=== PATIENT | female | born 1995 | race African-American/Black ===

== ENCOUNTER 2021-08-16 12:33 | Inpatient (IN) | payer MEDICAID, OTHER ==
[~2021-08-16] VITALS: Ht 172.7 cm; Wt 64.0 kg
[~2021-08-16 12:33] MED LIST: FERR325T23 PO; IBUP-2030 PO; LOV40 SQ; PNV1TABL76 PO
[2021-08-16] MEDS ORDERED: ACETAMINOPHEN 325MG TABLET PO STA (13:17)
[2021-08-16] MEDS ORDERED: SODIUM CHLORIDE 0.9% 1,000 ML IV ONE (14:45)
[2021-08-16 16:00] LABS: BASOPHILS % 2.1 % (0.0-2.0); EOSINOPHILS % 1.9 % (0.0-5.0); HEMATOCRIT. 29.4 % (36.0-48.0); HEMOGLOBIN. 9.3 g/dL (12.0-16.0); LYMPHOCYTES % 32.7 % (20.0-50.0); MEAN CORPUSCULAR HEMOGLOBIN 23.1 pg (28.0-32.0); MEAN CORPUSCULAR VOLUME 73.1 fL (81.0-99.0); MEAN PLATELET VOLUME 7.4 fl (7.4-10.4); MONOCYTES % 6.8 % (2.0-8.0); NEUTROPHILS % 56.5 % (40.0-76.0); PLATELET 387 x1000/uL (130-400); RED BLOOD CELL COUNT 4.02 mill/uL (4.2-5.4); RED CELL DISTRIBUTION WIDTH 17.9 % (11.6-14.6)
[2021-08-16] MEDS ORDERED: ASPIRIN 81MG TABLET PO ONE (16:00)
[2021-08-16 16:04] LABS: CHLORIDE 108 mEq/L (98-107)
[2021-08-16 16:07] LABS: ETHANOL BLOOD < 10 mg/dL
[2021-08-16 16:11] LABS: HCG SCREEN NEGATIVE
[2021-08-16 16:24] LABS: MONOTEST NEGATIVE (NEGATIVE)
[2021-08-17] VITALS: BP 113/73
[2021-08-17] MEDS ORDERED: ONDA4TAB5 MT (00:19)
[2021-08-17] MEDS ORDERED: MELO-104 PO (00:19)
[2021-08-17] MEDS ORDERED: CHOL400D7 PO (00:19)
[2021-08-17] MEDS ORDERED: BISA-81 MT (00:19)
[2021-08-17] MEDS ORDERED: BUTA1CAP45 MT (00:19)
[2021-08-17] MEDS ORDERED: PNV1TABL50 MT (00:19)
[2021-08-17] MEDS ORDERED: HYDR500C18 MT (00:19)
[2021-08-17] MEDS ORDERED: PYRI-9 MT (00:19)
[2021-08-17] MEDS ORDERED: PROT40 MT (00:19)
[2021-08-17] MEDS ORDERED: OXYC-100 MT (00:19)
[2021-08-17] MEDS ORDERED: GABA-529 MT (00:19)
[2021-08-17] MEDS ORDERED: LORA10TA64 MT (00:19)
[2021-08-17] MEDS ORDERED: ESCI5TAB PO (00:19)
[2021-08-17] MEDS ORDERED: FLUT1DIS3 INH (00:19)
[2021-08-17] MEDS ORDERED: FERR325T6 MT (00:24)
[2021-08-17] MEDS ORDERED: BISACODYL 5MG TABLET PO PRN (01:00)
[2021-08-17] MEDS ORDERED: IPRATROPIUM/ALBUTEROL 0.5-3(2.5)MG/3ML NEB HHN PRN (01:00)
[2021-08-17] MEDS ORDERED: NON FORMULARY PATIENT HOME MED XX SCH ×7 (01:00)
[2021-08-17] MEDS ORDERED: MELOXICAM 7.5MG TABLET PO PRN (01:00)
[2021-08-17 01:46] VITALS: BP 113/73
[2021-08-17] MEDS: ONDANSETRON HCL 4MG TABLET PO SCH ×4 (02:10→18:36)
[2021-08-17] MEDS: OXYCODONE HCL/ACETAMINOPHEN 5/325MG TABLET PO PRN ×3 (02:10→18:45)
[2021-08-17 04:00] VITALS: BP 112/61
[2021-08-17] MEDS: ALBUTEROL (0.083%) 2.5MG/3ML NEB HHN SCH ×4 (05:10→21:59)
[2021-08-17] MEDS: PANTOPRAZOLE 40MG DR TABLET PO SCH (06:59)
[2021-08-17] MEDS: BUDESONIDE 0.5MG/2ML NEB HHN SCH (08:49)
[2021-08-17 09:00] VITALS: BP 101/48
[2021-08-17] MEDS ORDERED: ENOXAPARIN 40MG/0.4ML SYR SUBCUT SCH (09:00)
[2021-08-17] MEDS: PRENATAL VIT/FE FUMARATE/FA TABLET PO SCH (09:36)
[2021-08-17] MEDS: CHOLECALCIFEROL (D3) 1000 UNIT TABLET PO SCH (09:36)
[2021-08-17] MEDS: LORATADINE 10MG TABLET PO SCH (09:37)
[2021-08-17] MEDS: FERROUS SULFATE 325MG TABLET PO SCH (09:38)
[2021-08-17] MEDS: BUTALBITAL/ACETAMINOPHEN/CAFFEINE 50/325/40MG TABLET PO SCH (09:38)
[2021-08-17] MEDS: PYRIDOXINE HCL 50MG TABLET PO SCH (09:38)
[2021-08-17] MEDS: CITALOPRAM HYDROBROMIDE 10MG TABLET PO SCH (09:39)
[2021-08-17] MEDS: GABAPENTIN 100MG CAPSULE PO SCH ×3 (09:39→18:37)
[2021-08-17] MEDS: ENOXAPARIN 40MG/0.4ML SYR SUBCUT SCH (09:40)
[2021-08-17] MEDS: HYDROXYUREA 500MG CAPSULE PO SCH (09:49)
[2021-08-17] MEDS ORDERED: NALOXONE HCL 0.4MG/ML VIAL IV PRN (13:00)
[2021-08-17] MEDS: KETOROLAC 30MG/ML VIAL IV PRN ×2 (14:31→21:21)
[2021-08-17 16:00] VITALS: BP 130/78
[2021-08-17 20:00] VITALS: BP 128/81
[2021-08-18] VITALS: BP 119/69
[2021-08-18] MEDS: ONDANSETRON HCL 4MG TABLET PO SCH ×3 (00:57→12:13)
[2021-08-18] MEDS: ALBUTEROL (0.083%) 2.5MG/3ML NEB HHN SCH ×2 (02:09→08:46)
[2021-08-18 04:00] VITALS: BP 129/84
[2021-08-18] MEDS: KETOROLAC 30MG/ML VIAL IV PRN ×2 (04:50→12:04)
[2021-08-18] MEDS: PANTOPRAZOLE 40MG DR TABLET PO SCH (05:00)
[2021-08-18 06:21] LABS: EOSINOPHILS % 3.9 % (0.0-5.0); HEMATOCRIT. 26.1 % (36.0-48.0); HEMOGLOBIN. 8.3 g/dL (12.0-16.0); LYMPHOCYTES % 50.9 % (20.0-50.0); MEAN CORPUSCULAR HEMOGLOBIN 23.1 pg (28.0-32.0); MEAN PLATELET VOLUME 7.8 fl (7.4-10.4); MONOCYTES % 6.6 % (2.0-8.0); NEUTROPHILS % 37.6 % (40.0-76.0); PLATELET 340 x1000/uL (130-400); RED BLOOD CELL COUNT 3.58 mill/uL (4.2-5.4)
[2021-08-18 06:44] LABS: CHLORIDE 108 mEq/L (98-107)
[2021-08-18 08:00] VITALS: BP 99/54
[2021-08-18] MEDS: BUDESONIDE 0.5MG/2ML NEB HHN SCH (08:46)
[2021-08-18] MEDS: BUTALBITAL/ACETAMINOPHEN/CAFFEINE 50/325/40MG TABLET PO SCH (09:00)
[2021-08-18] MEDS: ENOXAPARIN 40MG/0.4ML SYR SUBCUT SCH ×2 (09:00→09:04)
[2021-08-18] MEDS ORDERED: ASPIRIN 81MG TABLET PO SCH (09:00)
[2021-08-18] MEDS: CITALOPRAM HYDROBROMIDE 10MG TABLET PO SCH (09:04)
[2021-08-18] MEDS: FERROUS SULFATE 325MG TABLET PO SCH (09:04)
[2021-08-18] MEDS: PRENATAL VIT/FE FUMARATE/FA TABLET PO SCH (09:04)
[2021-08-18] MEDS: LORATADINE 10MG TABLET PO SCH (09:04)
[2021-08-18] MEDS: CHOLECALCIFEROL (D3) 1000 UNIT TABLET PO SCH (09:05)
[2021-08-18] MEDS: GABAPENTIN 100MG CAPSULE PO SCH ×2 (09:05→12:13)
[2021-08-18] MEDS: HYDROXYUREA 500MG CAPSULE PO SCH (09:05)
[2021-08-18] MEDS: PYRIDOXINE HCL 50MG TABLET PO SCH (09:06)
[2021-08-18] MEDS: OXYCODONE HCL/ACETAMINOPHEN 5/325MG TABLET PO PRN (09:21)
[2021-08-18 11:56] VITALS: BP 104/62
[2021-08-18 12:38] VITALS: BP 104/62
[2021-08-21 08:08] LABS: HGB A2 1.8 % (1.8-3.2)
== END 2021-08-18 15:55 | disposition home or self-care (01) | DRG 663 ==
LOC: ER 12:33 → 6WST 17:27 → ENRESERV 21:38
PROVIDERS: ADMIT Internal Medicine; ATTEND Internal Medicine
DX: D57.1 Sickle-cell disease without crisis (principal); E87.8 Other disorders of electrolyte and fluid balance, not elsewhere classified; I69.354 Hemiplegia and hemiparesis following cerebral infarction affecting left non-dominant side; J45.909 Unspecified asthma, uncomplicated; Z20.822 Contact with and (suspected) exposure to COVID-19; J02.9 Acute pharyngitis, unspecified; R07.9 Chest pain, unspecified; I69.398 Other sequelae of cerebral infarction
CPT/HCPCS: 36415; 71045; 80048; 80053; 80320; 83021; 83880; 84484; 84703; 85025; 85044; 85660; 86308; 87426; 93005; 94640; 99285; J1650; J1885; J7030; J7626; Q0162; G0480

== ENCOUNTER 2021-08-21 14:08 | Emergency (ER) | payer MEDICAID ==
[~2021-08-21] VITALS: Ht 170.2 cm; Wt 66.0 kg
[~2021-08-21 14:08] MED LIST changes: +BISA-81 MT; +BUTA1CAP45 MT; +CHOL400D7 PO; +ESCI5TAB PO; +FERR325T6 MT; +FLUT1DIS3 INH; +GABA-529 MT; +HYDR500C18 MT; +LORA10TA64 MT; +MELO-104 PO; +ONDA4TAB5 MT; +OXYC-100 MT; +PNV1TABL50 MT; +PROT40 MT; +PYRI-9 MT
[2021-08-21] MEDS ORDERED: FENTANYL CITRATE/PF 50MCG/ML 2ML VIAL IV ONE ×2 (16:45→18:00)
[2021-08-21] MEDS ORDERED: KETOROLAC 30MG/ML VIAL IV ONE (16:45)
[2021-08-21 16:57] LABS: HEMATOCRIT. 25.7 % (36.0-48.0); HEMOGLOBIN. 7.8 g/dL (12.0-16.0); LYMPHOCYTES % 50.3 % (20.0-50.0); MEAN CORPUSCULAR HEMOGLOBIN 23.4 pg (28.0-32.0); MEAN CORPUSCULAR VOLUME 76.8 fL (81.0-99.0); MEAN PLATELET VOLUME 7.5 fl (7.4-10.4); MONOCYTES % 6.6 % (2.0-8.0); NEUTROPHILS % 38.1 % (40.0-76.0); PLATELET 339 x1000/uL (130-400); RED BLOOD CELL COUNT 3.35 mill/uL (4.2-5.4); RED CELL DISTRIBUTION WIDTH 17.9 % (11.6-14.6)
[2021-08-21] MEDS ORDERED: OXYC-100 MT (19:13)
[2021-08-21 19:57] VITALS: BP 105/72
== END 2021-08-21 20:32 | disposition home or self-care (01) ==
LOC: ER 14:08
DX: D57.00 Hb-SS disease with crisis, unspecified (principal); I69.954 Hemiplegia and hemiparesis following unspecified cerebrovascular disease affecting left non-dominant side; M32.9 Systemic lupus erythematosus, unspecified
CPT/HCPCS: 36415; 85025; 96374; 96375; 96376; 99284; J1885; J3010

== ENCOUNTER 2021-08-23 00:16 | Emergency (ER) | payer MEDICAID ==
[~2021-08-23] VITALS: Ht 157.5 cm; Wt 61.0 kg
[~2021-08-23 00:16] MED LIST changes: -FERR325T23 PO; -IBUP-2030 PO; -PNV1TABL76 PO
[2021-08-23] MEDS ORDERED: SODIUM CHLORIDE 0.9% 1,000 ML IV ONE (01:45)
[2021-08-23] MEDS ORDERED: MORPHINE SULFATE 4 MG/ML CPJ (NOT FOR IM USE) IV ONE (01:45)
[2021-08-23] MEDS ORDERED: ASPIRIN 81MG TABLET PO ONE (01:45)
[2021-08-23 02:00] VITALS: BP 111/67
[2021-08-23 02:53] LABS: BASOPHILS % 0.7 % (0.0-2.0); EOSINOPHILS % 4.3 % (0.0-5.0); HEMATOCRIT. 29.7 % (36.0-48.0); HEMOGLOBIN. 9.5 g/dL (12.0-16.0); LYMPHOCYTES % 44.1 % (20.0-50.0); MEAN CORPUSCULAR HEMOGLOBIN 23.1 pg (28.0-32.0); MEAN CORPUSCULAR VOLUME 72.1 fL (81.0-99.0); MEAN PLATELET VOLUME 7.5 fl (7.4-10.4); MONOCYTES % 4.5 % (2.0-8.0); NEUTROPHILS % 46.4 % (40.0-76.0); PLATELET 395 x1000/uL (130-400); RED BLOOD CELL COUNT 4.12 mill/uL (4.2-5.4); RED CELL DISTRIBUTION WIDTH 18.3 % (11.6-14.6)
[2021-08-23 03:11] LABS: CHLORIDE 106 mEq/L (98-107)
[2021-08-23 03:15] LABS: ETHANOL BLOOD < 10 mg/dL
== END 2021-08-23 05:21 | disposition home or self-care (01) ==
LOC: ER 00:16
DX: G89.29 Other chronic pain (principal); D57.1 Sickle-cell disease without crisis
CPT/HCPCS: 36415; 71045; 80053; 80320; 85025; 85044; 96361; 96374; 99284; J2270; J7030; G0480

== ENCOUNTER 2021-09-04 08:27 | Emergency (ER) | payer MEDICAID ==
[~2021-09-04] VITALS: Ht 170.2 cm; Wt 59.0 kg
[2021-09-04] MEDS ORDERED: ONDANSETRON HCL 4MG/2ML INJ IV STA (08:45)
[2021-09-04] MEDS ORDERED: KETOROLAC 30MG/ML VIAL IV STA (08:45)
[2021-09-04 09:11] LABS: EOSINOPHILS % 2.3 % (0.0-5.0); HEMATOCRIT. 29.2 % (36.0-48.0); HEMOGLOBIN. 9.3 g/dL (12.0-16.0); LYMPHOCYTES % 49.1 % (20.0-50.0); MEAN CORPUSCULAR HEMOGLOBIN 24.9 pg (28.0-32.0); MEAN PLATELET VOLUME 7.1 fl (7.4-10.4); MONOCYTES % 6.6 % (2.0-8.0); PLATELET 433 x1000/uL (130-400); RED BLOOD CELL COUNT 3.74 mill/uL (4.2-5.4); RED CELL DISTRIBUTION WIDTH 27.5 % (11.6-14.6)
[2021-09-04 09:19] LABS: CHLORIDE 109 mEq/L (98-107)
[2021-09-04 09:30] LABS: HCG SCREEN NEGATIVE
[2021-09-04 09:48] LABS: PLATELET ESTIMATE SLIGHTLY INCREASED
[2021-09-04] MEDS ORDERED: DICYCLOMINE 10 MG/5 ML ORAL SYR PO STA (10:26)
[2021-09-04] MEDS ORDERED: VISCOUS LIDOCAINE 2% 15 ML UDC PO STA (10:26)
[2021-09-04] MEDS ORDERED: MAGNESIUM/ALUMINUM HYDROXIDE/SIMETHICONE 30ML UDC PO STA (10:26)
[2021-09-04] MEDS ORDERED: FAMOTIDINE 20MG/2ML VIAL IV STA (10:26)
[2021-09-04] MEDS ORDERED: IBUP-2030 PO (12:06)
[2021-09-04 12:50] VITALS: BP 110/63
== END 2021-09-04 13:16 | disposition home or self-care (01) ==
LOC: ER 08:37
DX: R10.2 Pelvic and perineal pain (principal); Z86.73 Personal history of transient ischemic attack (TIA), and cerebral infarction without residual deficits; M32.9 Systemic lupus erythematosus, unspecified; D57.1 Sickle-cell disease without crisis; J45.909 Unspecified asthma, uncomplicated; Z79.899 Other long term (current) drug therapy
CPT/HCPCS: 36415; 74018; 76830; 76856; 80053; 83690; 84703; 85025; 96374; 96375; 99285; J1885; J2405; J3490; Z7610

== ENCOUNTER 2021-12-01 19:11 | Inpatient (IN) | payer MEDICAID ==
[~2021-12-01] VITALS: Ht 172.7 cm; Wt 70.8 kg
[~2021-12-01 19:11] MED LIST changes: +ENOX40SY27 SQ; +IBUP-2030 PO; -LOV40 SQ
[2021-12-01 20:51] LABS: BASOPHILS % 0.8 % (0.0-2.0); EOSINOPHILS % 2.1 % (0.0-5.0); HEMATOCRIT. 29.2 % (36.0-48.0); LYMPHOCYTES % 43.2 % (20.0-50.0); MEAN CORPUSCULAR HEMOGLOBIN 22.2 pg (28.0-32.0); MONOCYTES % 5.9 % (2.0-8.0); PLATELET 362 x1000/uL (130-400); RED BLOOD CELL COUNT 4.06 mill/uL (4.2-5.4); RED CELL DISTRIBUTION WIDTH 21.6 % (11.6-14.6)
[2021-12-01 21:00] LABS: INR 1.1; PROTHROMBIN TIME 11.9 sec (9.6-11.0)
[2021-12-01] MEDS ORDERED: SODIUM CHLORIDE 0.9% 1,000 ML IV ONE (21:15)
[2021-12-01] MEDS ORDERED: HYDROMORPHONE HCL/PF 2MG/ML CPJ IV ONE ×2 (21:30→23:15)
[2021-12-01] MEDS ORDERED: ONDANSETRON HCL 4MG/2ML INJ IV ONE (21:30)
[2021-12-01 21:32] LABS: CHLORIDE 105 mEq/L (98-107)
[2021-12-01 22:03] LABS: CLARITY URINE CLEAR (CLEAR); COLOR URINE YELLOW (YELLOW); KETONES URINE NEGATIVE (NEGATIVE); LEUKOCYTE ESTERASE URINE NEGATIVE (NEGATIVE); NITRITE URINE NEGATIVE (NEGATIVE); OCCULT BLOOD URINE NEGATIVE (NEGATIVE); PH URINE 7.5 (4.5-8.0); PROTEIN URINE NEGATIVE (NEGATIVE); SPECIFIC GRAVITY URINE 1.012 (1.005-1.030); UROBILINOGEN URINE 0.2 E.U./dL (0.2-1.0)
[2021-12-02] MEDS ORDERED: NALOXONE HCL 0.4MG/ML VIAL IV PRN (02:00)
[2021-12-02] MEDS: MORPHINE SULFATE 2 MG/ML CPJ (NOT FOR IM USE) IV PRN ×2 (04:42→08:57)
[2021-12-02] MEDS: ONDANSETRON HCL 4MG/2ML INJ IV PRN ×2 (04:42→11:32)
[2021-12-02 09:00] VITALS: BP 104/75
[2021-12-02 12:00] VITALS: BP 99/66
[2021-12-02] MEDS: SODIUM CHLORIDE 0.9% 1,000 ML IV SCH ×2 (12:35→23:50)
[2021-12-02] MEDS: KETOROLAC 30MG/ML VIAL IV PRN ×2 (12:36→19:00)
[2021-12-02] MEDS: FOLIC ACID 1MG TABLET PO SCH (15:39)
[2021-12-02] MEDS: GABAPENTIN 100MG CAPSULE PO SCH ×2 (15:39→22:15)
[2021-12-02 16:00] VITALS: BP 111/69
[2021-12-02] MEDS: ENOXAPARIN 40MG/0.4ML SYR SUBCUT SCH (19:02)
[2021-12-02 20:00] VITALS: BP 112/68
[2021-12-02] MEDS: HYDROCODONE/ACETAMINOPHEN 10/325MG TABLET PO PRN (22:15)
[2021-12-03] VITALS: BP 94/46
[2021-12-03] MEDS: KETOROLAC 30MG/ML VIAL IV PRN ×3 (01:03→16:46)
[2021-12-03 04:00] VITALS: BP 104/59
[2021-12-03] MEDS ORDERED: HYDROMORPHONE HCL/PF 2MG/ML CPJ IV SCH (07:00)
[2021-12-03] MEDS: GABAPENTIN 100MG CAPSULE PO SCH ×3 (07:21→22:16)
[2021-12-03 08:00] VITALS: BP 103/59
[2021-12-03] MEDS: PANTOPRAZOLE 40MG DR TABLET PO SCH (08:12)
[2021-12-03] MEDS: ENOXAPARIN 40MG/0.4ML SYR SUBCUT SCH (08:12)
[2021-12-03] MEDS: FOLIC ACID 1MG TABLET PO SCH (08:12)
[2021-12-03] MEDS: ASPIRIN 81MG TABLET PO SCH (08:12)
[2021-12-03 12:00] VITALS: BP 103/60
[2021-12-03] MEDS: SODIUM CHLORIDE 0.9% 1,000 ML IV SCH (13:41)
[2021-12-03 15:51] VITALS: BP 105/65
[2021-12-03 20:00] VITALS: BP 117/71
[2021-12-03] MEDS: HYDROCODONE/ACETAMINOPHEN 10/325MG TABLET PO PRN (20:12)
[2021-12-04] VITALS: BP 114/64
[2021-12-04] MEDS: KETOROLAC 30MG/ML VIAL IV PRN ×2 (01:58→09:56)
[2021-12-04] MEDS: SODIUM CHLORIDE 0.9% 1,000 ML IV SCH (02:40)
[2021-12-04 04:00] VITALS: BP 101/57
[2021-12-04] MEDS: GABAPENTIN 100MG CAPSULE PO SCH ×2 (05:24→13:03)
[2021-12-04] MEDS: PANTOPRAZOLE 40MG DR TABLET PO SCH (06:40)
[2021-12-04 08:00] VITALS: BP 100/59
[2021-12-04] MEDS: FOLIC ACID 1MG TABLET PO SCH (09:56)
[2021-12-04] MEDS: ASPIRIN 81MG TABLET PO SCH (09:56)
[2021-12-04] MEDS: ENOXAPARIN 40MG/0.4ML SYR SUBCUT SCH (09:57)
[2021-12-04 11:29] VITALS: BP 125/75
[2021-12-05] MEDS ORDERED: FAMOTIDINE 20MG TABLET PO SCH (09:00)
== END 2021-12-04 16:16 | disposition home or self-care (01) | DRG 203 ==
LOC: ER 19:11 → 7WST 12-02 04:47 → MICUSO 12-02 05:14 → 7WST 12-02 09:32
PROVIDERS: ADMIT Internal Medicine; ATTEND Internal Medicine
DX: M94.0 Chondrocostal junction syndrome [Tietze] (principal); M32.9 Systemic lupus erythematosus, unspecified; D57.1 Sickle-cell disease without crisis; J45.909 Unspecified asthma, uncomplicated; I69.354 Hemiplegia and hemiparesis following cerebral infarction affecting left non-dominant side; R53.1 Weakness; Z20.822 Contact with and (suspected) exposure to COVID-19; Z79.01 Long term (current) use of anticoagulants; Z79.899 Other long term (current) drug therapy
CPT/HCPCS: 36415; 70551; 71045; 80053; 81003; 84484; 85025; 85044; 87426; 93005; 93970; 97161; 99285; J1170; J1650; J1885; J2270; J2405; J7030

== ENCOUNTER 2022-01-01 09:34 | Emergency (ER) | payer MEDICAID ==
[~2022-01-01] VITALS: Ht 172.7 cm; Wt 55.0 kg
[2022-01-01] MEDS ORDERED: MORPHINE SULFATE 4 MG/ML CPJ (NOT FOR IM USE) IV STA (09:56)
[2022-01-01] MEDS ORDERED: SODIUM CHLORIDE 0.9% 1,000 ML IV ONE (10:00)
[2022-01-01 10:12] LABS: BASOPHILS % 1.8 % (0.0-2.0); EOSINOPHILS % 3.7 % (0.0-5.0); HEMATOCRIT. 31.8 % (36.0-48.0); LYMPHOCYTES % 44.3 % (20.0-50.0); MEAN CORPUSCULAR VOLUME 70.1 fL (81.0-99.0); MEAN PLATELET VOLUME 7.1 fl (7.4-10.4); MONOCYTES % 9.2 % (2.0-8.0); PLATELET 420 x1000/uL (130-400); RED BLOOD CELL COUNT 4.53 mill/uL (4.2-5.4); RED CELL DISTRIBUTION WIDTH 20.3 % (11.6-14.6)
[2022-01-01 10:19] LABS: CHLORIDE 107 mEq/L (98-107); HCG SCREEN NEGATIVE
[2022-01-01 10:23] LABS: INR 1.1; PROTHROMBIN TIME 11.4 sec (9.6-11.0)
[2022-01-01 12:30] VITALS: BP 116/84
== END 2022-01-01 13:34 | disposition home or self-care (01) ==
LOC: ER 09:34
DX: R07.89 Other chest pain (principal); R06.02 Shortness of breath; M79.18 Myalgia, other site; D50.9 Iron deficiency anemia, unspecified; M32.9 Systemic lupus erythematosus, unspecified; R03.0 Elevated blood-pressure reading, without diagnosis of hypertension; I69.954 Hemiplegia and hemiparesis following unspecified cerebrovascular disease affecting left non-dominant side; Z79.899 Other long term (current) drug therapy
CPT/HCPCS: 36415; 71045; 80053; 84484; 84703; 85025; 85044; 85610; 85660; 93005; 96361; 96374; 99285; J2270; J7030

== ENCOUNTER 2022-05-12 01:28 | Emergency (ER) | payer MEDICAID ==
[~2022-05-12] VITALS: Ht 180.3 cm; Wt 82.0 kg
[2022-05-12] MEDS ORDERED: HYDROCODONE/ACETAMINOPHEN 5/325MG TABLET PO ONE (02:30)
[2022-05-12 02:39] LABS: HEMATOCRIT. 29.9 % (36.0-48.0); HEMOGLOBIN. 9.5 g/dL (12.0-16.0); LYMPHOCYTES % 60.2 % (20.0-50.0); MEAN CORPUSCULAR HEMOGLOBIN 22.3 pg (28.0-32.0); MEAN CORPUSCULAR VOLUME 70.5 fL (81.0-99.0); MEAN PLATELET VOLUME 7.9 fl (7.4-10.4); MONOCYTES % 6.7 % (2.0-8.0); NEUTROPHILS % 28.1 % (40.0-76.0); PLATELET 429 x1000/uL (130-400); RED BLOOD CELL COUNT 4.23 mill/uL (4.2-5.4); RED CELL DISTRIBUTION WIDTH 19.5 % (11.6-14.6)
[2022-05-12 02:41] LABS: CHLORIDE 109 mEq/L (98-107)
[2022-05-12 03:53] LABS: *AMPHETAMINES SCREEN URINE NEGATIVE (NEGATIVE); *BARBITURATES SCREEN URINE NEGATIVE (NEGATIVE); *BENZODIAZEPINES SCREEN URINE NEGATIVE (NEGATIVE); *COCAINE SCREEN URINE NEGATIVE (NEGATIVE); CANNABINOID URINE SCREEN NEGATIVE (NEGATIVE); METHADONE URINE SCREEN NEGATIVE (NEGATIVE); OPIATES URINE SCREEN NEGATIVE (NEGATIVE); PHENCYCLIDINE URINE SCREEN NEGATIVE (NEGATIVE)
[2022-05-12 05:00] VITALS: BP 109/58
== END 2022-05-12 05:12 | disposition home or self-care (01) ==
LOC: ER 01:41
DX: M79.18 Myalgia, other site (principal); R53.1 Weakness; Z20.822 Contact with and (suspected) exposure to COVID-19; R11.0 Nausea; I69.954 Hemiplegia and hemiparesis following unspecified cerebrovascular disease affecting left non-dominant side; M32.9 Systemic lupus erythematosus, unspecified; D57.1 Sickle-cell disease without crisis; Z79.899 Other long term (current) drug therapy; F12.90 Cannabis use, unspecified, uncomplicated
CPT/HCPCS: 36415; 71045; 80053; 80305; 81025; 85025; 85044; 87426; 87804; 99284; C9803; Z7610

== ENCOUNTER 2022-11-23 09:50 | Emergency (ER) | payer MEDICAID ==
[~2022-11-23] VITALS: Ht 157.5 cm; Wt 52.0 kg
[2022-11-23 09:52] VITALS: O2SAT 100
[2022-11-23] MEDS ORDERED: ONDANSETRON HCL 4MG/2ML INJ IV STA (10:27)
[2022-11-23] MEDS ORDERED: KETOROLAC 30MG/ML VIAL IV STA (10:27)
[2022-11-23] MEDS ORDERED: AMOXICILLIN/POTASSIUM CLAVULANATE 875/125MG TAB PO ONE (10:30)
[2022-11-23] MEDS ORDERED: SODIUM CHLORIDE 0.9% 1,000 ML IV ONE (10:30)
[2022-11-23 11:28] LABS: BASOPHILS % 1.3 % (0.0-2.0); EOSINOPHILS % 4.8 % (0.0-5.0); HEMATOCRIT. 30.5 % (36.0-48.0); MEAN CORPUSCULAR VOLUME 79.3 fL (81.0-99.0); MEAN PLATELET VOLUME 7.1 fl (7.4-10.4); NEUTROPHILS % 29.9 % (40.0-76.0); PLATELET 318 x1000/uL (130-400); RED BLOOD CELL COUNT 3.85 mill/uL (4.2-5.4); RED CELL DISTRIBUTION WIDTH 22.4 % (11.6-14.6)
[2022-11-23 11:38] LABS: CHLORIDE 110 mEq/L (98-107)
[2022-11-23 11:40] LABS: HCG SCREEN NEGATIVE
[2022-11-23] MEDS ORDERED: DIPHENHYDRAMINE 50MG/ML VIAL IV ONE (11:45)
[2022-11-23 12:35] LABS: PLATELET ESTIMATE NORMAL
[2022-11-23] MEDS ORDERED: HYDROCODONE/ACETAMINOPHEN 5/325MG TABLET PO ONE (12:45)
[2022-11-23] MEDS ORDERED: ONDA4TAB11 PO (13:25)
[2022-11-23] MEDS ORDERED: AMOX1TAB16 MT (13:25)
[2022-11-23] MEDS ORDERED: TOPUD MT (13:25)
[2022-11-23] MEDS ORDERED: FLUT9.9S BOTHNSTRLS (13:39)
[2022-11-23 13:55] VITALS: BP 116/69; PULSE 96; RESP 16; TEMP 98.4
== END 2022-11-23 13:56 | disposition home or self-care (01) ==
LOC: ER 09:53
DX: J32.9 Chronic sinusitis, unspecified (principal); J45.909 Unspecified asthma, uncomplicated; Z87.01 Personal history of pneumonia (recurrent); Z86.73 Personal history of transient ischemic attack (TIA), and cerebral infarction without residual deficits; Z79.899 Other long term (current) drug therapy
CPT/HCPCS: 80053; 84703; 83690; 85025; 36415; 96361; 96374; 96375; 99285; J1200; J1885; J2405; J7030; Z7610

== ENCOUNTER 2022-12-02 00:35 | Emergency (ER) | payer MEDICAID ==
[~2022-12-02] VITALS: Ht 167.6 cm; Wt 74.0 kg
[~2022-12-02 00:35] MED LIST changes: +AMOX1TAB16 MT; +FLUT9.9S BOTHNSTRLS; +ONDA4TAB11 PO; +TOPUD MT
[2022-12-02 01:16] VITALS: TEMP 98.3
[2022-12-02] MEDS ORDERED: IPRATROPIUM BROMIDE (0.02%) 0.5MG/2.5ML NEB HHN STA (01:38)
[2022-12-02] MEDS ORDERED: ALBUTEROL (0.083%) 2.5MG/3ML NEB HHN STA (01:38)
[2022-12-02] MEDS ORDERED: PREDNISONE 20MG TABLET PO STA (01:38)
[2022-12-02] MEDS ORDERED: HYDROCODONE/ACETAMINOPHEN 5/325MG TABLET PO ONE (01:45)
[2022-12-02 03:41] LABS: HEMATOCRIT. 29.2 % (36.0-48.0); HEMOGLOBIN. 9.7 g/dL (12.0-16.0); MEAN CORPUSCULAR HEMOGLOBIN 26.4 pg (28.0-32.0); MEAN CORPUSCULAR HGB CONC 33.2 g/dL (31.0-37.0); MEAN CORPUSCULAR VOLUME 79.5 fL (81.0-99.0); MEAN PLATELET VOLUME 7.7 fl (7.4-10.4); PLATELET 381 x1000/uL (130-400); RED BLOOD CELL COUNT 3.67 mill/uL (4.2-5.4); WHITE BLOOD COUNT 7.9 x1000/uL (4.5-11.0)
[2022-12-02 03:46] LABS: CHLORIDE 111 mEq/L (98-107); INDEX HEMOLYSI 2 (1-3); INDEX ICTERIC 1 (1-4); INDEX LIPEMIC 1 (1-3); POTASSIUM 3.1 mEq/L (3.5-5.1); SODIUM 138 mEq/L (136-145)
[2022-12-02 03:55] LABS: ALANINE AMINOTRANSFERASE 31 IU/L (13-61); ALBUMIN 3.5 g/dL (3.4-5.0); ASPARTATE AMINOTRANSFERASE 17 IU/L (15-37); BILIRUBIN TOTAL 0.3 mg/dL (0.1-1.0); CALCIUM 8.1 mg/dL (8.5-10.1); CARBON DIOXIDE 21 mEq/L (21-32); CREATININE 0.6 mg/dL (0.6-1.3); GLUCOSE 105 mg/dL (70-105); PROTEIN TOTAL 7.5 g/dL (6.0-8.3); UREA NITROGEN BLOOD 12 mg/dL (7-21)
[2022-12-02 03:58] LABS: TROPONIN I HIGH SENSITIVITY < 4 ng/L (<54)
[2022-12-02 04:00] LABS: DIFFERENTIAL COMMENT 1
[2022-12-02] MEDS ORDERED: FAMOTIDINE 20MG/2ML VIAL IV ONE (04:00)
[2022-12-02] MEDS ORDERED: POTASSIUM CHLORIDE 20MEQ TABLET SR PO NR (04:00)
[2022-12-02] MEDS ORDERED: KETOROLAC 30MG/ML VIAL IV ONE (04:00)
[2022-12-02 04:10] VITALS: PULSE 96; RESP 18; O2SAT 100
[2022-12-02] MEDS ORDERED: MAGNESIUM/ALUMINUM HYDROXIDE/SIMETHICONE 30ML UDC PO NR (04:15)
[2022-12-02] MEDS ORDERED: IPRATROPIUM BROMIDE (0.02%) 0.5MG/2.5ML NEB HHN NR (04:15)
[2022-12-02] MEDS ORDERED: FAMOTIDINE 20MG/2ML VIAL IV NR (04:15)
[2022-12-02] MEDS ORDERED: KETOROLAC 30MG/ML VIAL IV NR (04:15)
[2022-12-02] MEDS ORDERED: ALBUTEROL (0.083%) 2.5MG/3ML NEB HHN NR (04:15)
[2022-12-02 05:00] VITALS: BP 119/71; PULSE 78; RESP 18
[2022-12-02] MEDS ORDERED: P50 MT (06:06)
[2022-12-02] MEDS ORDERED: ALBU6.7H15 INH (06:06)
[2022-12-02] MEDS ORDERED: LEVO750T68 MT (06:06)
[2022-12-02] MEDS ORDERED: LEVOFLOXACIN 250MG TABLET PO ONE (06:15)
[2022-12-02 09:07] LABS: ADD RBC MORPHOLOGY YES
[2022-12-02 10:10] LABS: MICROCYTOSIS 1+; PLATELET ESTIMATE NORMAL
== END 2022-12-02 07:10 | disposition home or self-care (01) ==
LOC: ER 00:35
DX: J40 Bronchitis, not specified as acute or chronic (principal); Z79.899 Other long term (current) drug therapy
CPT/HCPCS: 80053; 85025; 84484; 36415; 71045; 94640; 93005; 96374; 96375; 99285; J7512; J3490; J1885; Z7610 ×4

== ENCOUNTER 2022-12-14 13:18 | Emergency (ER) | payer MEDICAID ==
[~2022-12-14] VITALS: Ht 172.7 cm; Wt 61.0 kg
[~2022-12-14 13:18] MED LIST changes: +ALBU6.7H15 INH; +LEVO750T68 MT; +P50 MT
[2022-12-14 13:24] VITALS: BP 110/80; PULSE 84; RESP 18; TEMP 97.1; O2SAT 99
[2022-12-14] MEDS ORDERED: IBUPROFEN 400MG TABLET PO ONE (14:00)
[2022-12-14 15:21] LABS: BASOPHILS % 0.4 % (0.0-2.0); DIFFERENTIAL COMMENT 0; HEMATOCRIT. 31.4 % (36.0-48.0); HEMOGLOBIN. 10.6 g/dL (12.0-16.0); LYMPHOCYTES % 9.4 % (20.0-50.0); MEAN CORPUSCULAR HEMOGLOBIN 26.8 pg (28.0-32.0); MEAN CORPUSCULAR HGB CONC 33.8 g/dL (31.0-37.0); MEAN CORPUSCULAR VOLUME 79.2 fL (81.0-99.0); MEAN PLATELET VOLUME 7.1 fl (7.4-10.4); MONOCYTES % 1.3 % (2.0-8.0); NEUTROPHILS % 88.9 % (40.0-76.0); PLATELET 525 x1000/uL (130-400); RED BLOOD CELL COUNT 3.96 mill/uL (4.2-5.4); RED CELL DISTRIBUTION WIDTH 19.9 % (11.6-14.6); WHITE BLOOD COUNT 8.2 x1000/uL (4.5-11.0)
[2022-12-14 15:25] LABS: CHLORIDE 107 mEq/L (98-107); INDEX HEMOLYSI 1 (1-3); INDEX ICTERIC 1 (1-4); INDEX LIPEMIC 1 (1-3); POTASSIUM 3.5 mEq/L (3.5-5.1); SODIUM 137 mEq/L (136-145)
[2022-12-14 15:28] LABS: HCG SCREEN NEGATIVE
[2022-12-14 15:35] LABS: ALANINE AMINOTRANSFERASE 13 IU/L (13-61); ALBUMIN 3.9 g/dL (3.4-5.0); ASPARTATE AMINOTRANSFERASE 8 IU/L (15-37); BILIRUBIN TOTAL 0.6 mg/dL (0.1-1.0); CALCIUM 8.8 mg/dL (8.5-10.1); CARBON DIOXIDE 26 mEq/L (21-32); CREATININE 0.7 mg/dL (0.6-1.3); GLUCOSE 115 mg/dL (70-105); PROTEIN TOTAL 8.5 g/dL (6.0-8.3); UREA NITROGEN BLOOD 10 mg/dL (7-21)
[2022-12-14 15:40] LABS: TROPONIN I HIGH SENSITIVITY < 4 ng/L (<54)
[2022-12-14] MEDS ORDERED: IBUP-2028 MT (16:00)
== END 2022-12-14 16:40 | disposition home or self-care (01) ==
LOC: ER 13:42
DX: R07.89 Other chest pain (principal); J45.909 Unspecified asthma, uncomplicated; Z87.01 Personal history of pneumonia (recurrent); Z86.73 Personal history of transient ischemic attack (TIA), and cerebral infarction without residual deficits; Z79.899 Other long term (current) drug therapy; V49.49XA Driver injured in collision with other motor vehicles in traffic accident, initial encounter; Y93.89 Activity, other specified; Y92.89 Other specified places as the place of occurrence of the external cause; Y99.8 Other external cause status
CPT/HCPCS: 36415; 71046; 80053; 84484; 84703; 85025; 85044; 93005; 99285